=== PATIENT | male | born 1955 | race Caucasian/White ===

== ENCOUNTER 2017-11-17 16:52 | Emergency (ER) | payer BC ==
[2017-11-17] MEDS: MORPHINE 10 MG/ML 1ML VIAL (J2270) IM (17:26)
[2017-11-17] MEDS: MORPHINE 4 MG/ML 1ML VIAL (J2270) IV ×3 (19:28→20:33)
[2017-11-17] MEDS: ONDANSETRON 4MG/2ML VIAL (J2405) IV (19:28)
[2017-11-17 19:36] LABS: BASO % 0.3 % (0.0-1.0); EOS # 0.1 10^3/uL (0.0-0.50); EOS % 0.4 % (0.0-3.0); HEMATOCRIT 42.7 % (42.0-52.0); IMMATURE GRANULOCYTE % 0.6 % (0-3.0); LYMPH # 1.7 10^3/uL (1.5-4.5); LYMPH % 11.2 % (24.0-44.0); MEAN CORPUSCULAR HEMOGLOBIN 32.5 pg (27.0-33.0); MEAN CORPUSCULAR HGB CONC 35.1 g/dl (32.0-36.5); MEAN CORPUSCULAR VOLUME 92.6 fl (80.0-96.0); MONO # 0.9 10^3/uL (0.0-0.8); MONO % 5.8 % (0.0-5.0); NEUTROPHILS % 81.7 % (36.0-66.0); PLATELET COUNT, AUTOMATED 204 10^3/uL (150-450); RED BLOOD COUNT 4.61 10^6/uL (4.30-6.10); WHITE BLOOD COUNT 14.7 10^3/uL (4.0-10.0)
[2017-11-17] MEDS ORDERED: NORCO, ANEXSIA 5/325MG TABLET (HYDROcodone/ACETAMINOPHEN) PO (20:00)
[2017-11-17 20:07] LABS: ANION GAP 9 MEQ/L (8-16); BLOOD UREA NITROGEN 21 MG/DL (7-18); CALCIUM LEVEL 9.1 MG/DL (8.8-10.2); CARBON DIOXIDE LEVEL 25 MEQ/L (21-32); CHLORIDE LEVEL 104 MEQ/L (98-107); CREATININE FOR GFR 1.13 MG/DL (0.70-1.30); GLOMERULAR FILTRATION RATE > 60.0 (>49); GLUCOSE, FASTING 227 MG/DL (70-100); POTASSIUM SERUM 4.2 MEQ/L (3.5-5.1); SODIUM LEVEL 138 MEQ/L (136-145)
[2017-11-17] MEDS: OXYCODONE/APAP 5MG/325MG(BULK FOR ED) 1 TABLET PO (21:19)
[2017-11-17] MEDS: PERCOCET 5MG/325MG TAB PO (21:19)
[2017-11-17] MEDS: ONDANSETRON 4 MG ORAL DISINTEGRATING TAB (S0181) PO (21:21)
== END 2017-11-17 21:23 | disposition home or self-care (01) ==
LOC: M ED 16:52
DX: S42.301A Unspecified fracture of shaft of humerus, right arm, initial encounter for closed fracture (principal); V80.018A Animal-rider injured by fall from or being thrown from other animal in noncollision accident, initial encounter; Y92.89 Other specified places as the place of occurrence of the external cause; Y93.52 Activity, horseback riding
CPT/HCPCS: J2270

== ENCOUNTER 2018-08-06 08:45 | Day surgery (SDC) | payer BC ==
[~2018-08-06 08:45] MED LIST: NS 1,000 ML IV; PROPOFOL 200 MG/20 ML VIAL As Ordered
[2018-08-06] MEDS ORDERED: LIDOCAINE 2% INJ 100 MG/5 ML SDV (FOR ANES.) As Ordered (09:33)
== END 2018-08-06 10:26 | disposition home or self-care (01) ==
LOC: M OPP 08:45
DX: Z12.11 Encounter for screening for malignant neoplasm of colon (principal); K64.0 First degree hemorrhoids; K57.30 Diverticulosis of large intestine without perforation or abscess without bleeding; K62.1 Rectal polyp
CPT/HCPCS: 45380

== ENCOUNTER 2024-02-24 12:02 | Emergency (ER) | payer MEDICARE ==
[~2024-02-24] VITALS: Ht 177.8 cm; Wt 113.2 kg
[~2024-02-24 12:02] MED LIST changes: +ASPI81TA86 PO; +METF-723; -NS 1,000 ML IV; +PERC5TAB12 PO; -PROPOFOL 200 MG/20 ML VIAL As Ordered; +RAMI5CAP60; +SIMV40TA20; +VICT18IN; +ZOFR4TAB14 PO
[2024-02-24] MEDS: KETOROLAC 60MG 2ML VIAL IM ONE (14:36)
[2024-02-24] MEDS: LIDOCAINE 5% (LIDODERM) PATCH TD ONE (14:36)
[2024-02-24] MEDS: diazePAM 10 MG TAB PO ONE (14:36)
[2024-02-24] MEDS ORDERED: METH-1165 PO (16:22)
[2024-02-24] MEDS ORDERED: MEDR4PAK PO (16:22)
[2024-02-24] MEDS ORDERED: ASPE4PAD TOP (16:22)
[2024-02-24 16:30] VITALS: BP 119/61; TEMP 96.8; O2SAT 97
== END 2024-02-24 16:33 | disposition home or self-care (01) ==
LOC: M ED 12:02
DX: M54.50 Low back pain, unspecified (principal); E11.9 Type 2 diabetes mellitus without complications; I10 Essential (primary) hypertension; Z79.1 Long term (current) use of non-steroidal anti-inflammatories (NSAID); Z79.84 Long term (current) use of oral hypoglycemic drugs; Z79.899 Other long term (current) drug therapy
CPT/HCPCS: 72131; 96372; 99283; J1885